=== PATIENT | male | born 1990 | race African-American/Black ===

== ENCOUNTER 2019-03-17 13:34 | Outpatient (CLI) | payer OTHER ==
--- NOTE | 2019-03-18 12:04 | MRI Report ---
Reason: PAIN IN LEFT KNEE Procedure Date: 03/17/2019 Accession Number: [id number] / [id number] Procedure: MRI - Knee LT W/O CPT Code: FULL RESULT: EXAM: LEFT KNEE MRI WITHOUT CONTRAST EXAM DATE: 03/17/2019 02:38 PM. CLINICAL HISTORY: Pain and swelling in left knee. Injury 2 months ago. COMPARISON: None. TECHNIQUE: Multiplanar, multisequence T1-weighted and fluid-sensitive sequences of the knee without contrast. Other: None. FINDINGS: Bones: No fractures or subluxations. No marrow edema. No bone lesions. Articular Cartilage: Unremarkable. Medial Meniscus: The medial meniscus is intact. Lateral Meniscus: The lateral meniscus is intact. Cruciate Ligaments: The anterior and posterior cruciate ligaments are intact. Collateral Ligaments: The medial collateral and lateral collateral ligamentous structures are intact. Tendons: Mild T2 hyperintensity proximal patellar tendon. The remaining tendons appear normal. Musculature: No edema or fatty atrophy. Other: No effusion. No popliteal cyst. No loose bodies. The medial and lateral retinacula are intact. Focal edema in the superolateral aspect of Hoffa's fat pad. IMPRESSION: 1. Mild proximal patellar tendinosis. 2. Focal soft tissue edema superolateral aspect of Hoffa's fat pad may represent patellar tracking abnormality or tight lateral patellar retinaculum. 3. No evidence of internal derangement. [facility]IA
== END 2019-03-17 13:35 | disposition home or self-care (01) ==
LOC: DI 13:34
PROVIDERS: ATTEND Orthopaedic Surgery
DX: M25.562 Pain in left knee (principal); M67.864 Other specified disorders of tendon, left knee

== ENCOUNTER 2020-07-10 08:47 | Outpatient (CLI) | payer OTHER ==
--- NOTE | 2020-07-10 10:22 | MRI Report ---
PROCEDURE: Knee LT W/O INDICATIONS: LT KNEE PAIN, LT KNEE PATELLAR TENDINITIS TECHNIQUE: Noncontrast sagittal PD fast spin echo and T2 fast spin echo with fat saturation, sagittal 3-D gradie nt sequence with fat saturation; coronal T1 spin echo and PD fast spin echo with fat saturation, and axial PD fast spin echo with fat saturation through the knee. COMPARISON: Knee MRI dated 03.17.19. FINDINGS: Image quality: Excellent. Menisci: The medial and lateral menisci demonstrate normal morphology and internal signal. The meni scal root ligaments appear intact. Cruciate ligaments: The anterior and posterior cruciate ligaments appear intact. Medial structures: The medial collateral ligament appears intact. Visualized portions of the pes ans erinus tendons appear normal. No abnormal bursal fluid. Lateral structures: The lateral collateral ligament, long and short heads of the biceps femoris tend on appear intact. The popliteus tendon appears normal. Iliotibial band appears normal. Anterior structures: The quadriceps and patellar tendons appear intact. There is increased, mild T2 signal elevation within the patellar tendon at the patellar insertion site. Patellar alignment is no rmal. No femoral trochlear dysplasia or ventral trochlear prominence. No change in moderate edema w ithin the superolateral aspect of the infrapatellar fat pad. Bones and cartilage: No bone marrow contusions or fractures. There is mild diffuse articular cartila ge loss overlying the weightbearing aspects of the medial and lateral compartments. Severe articular cartilage loss overlies the lateral patellar facet inferiorly. Joint space: There is a small knee joint effusion and a trace Painting?s cyst. Normal appearing synovi al plicae are incidentally noted. IMPRESSION: 1. No internal derangement. 2. Findings consistent with lateral patellofemoral friction syndrome in the appropriate clinical sett ing. There is associated patellofemoral compartment articular cartilage loss as described above. 3. Increased, mild patellar tendinitis. 4. Small knee joint effusion and trace Painting's cyst. Reviewed by: Susanna Cloud MD on 07/10/2020 9:20 AM [facility] Approved by: Susanna Cloud MD on 07/10/2020 9:20 AM [facility] Station ID: [id number]
== END 2020-07-10 08:48 | disposition home or self-care (01) ==
LOC: DI 08:47
PROVIDERS: ATTEND Orthopaedic Surgery
DX: M76.52 Patellar tendinitis, left knee (principal); M25.462 Effusion, left knee